=== PATIENT | male | born 1985 | race Caucasian/White ===

== ENCOUNTER 2022-12-04 12:52 | Inpatient (IN) | payer OTHER ==
[2022-12-04 14:08] VITALS: BMI 35.2
[2022-12-04] MEDS ORDERED: DICYCLOMINE HCL 10 MG CAPSULE PO PRN (18:19)
[2022-12-04] MEDS ORDERED: hydrOXYzine PAMOATE 25 MG CAPSULE (FP) PO PRN (18:19)
[2022-12-04] MEDS ORDERED: ACETAMINOPHEN 325 MG TABLET (FP) PO PRN ×2 (18:19)
[2022-12-04] MEDS ORDERED: LOPERAMIDE HCL 2 MG CAPSULE PO PRN (18:19)
[2022-12-04] MEDS ORDERED: BISMUTH SUBSALICYLATE 524 MG/30 ML PO PRN (18:19)
[2022-12-04] MEDS ORDERED: MAG HYDROX/AL HYDROX/SIMETH 30 ML UNIT-DOSE CUP PO PRN (18:19)
[2022-12-04] MEDS ORDERED: IBUPROFEN 600 MG TABLET (FP) PO PRN (18:19)
[2022-12-04] MEDS ORDERED: NALOXONE HCL (KLOXXADO) 8 MG SPRAY NS PRN (18:19)
[2022-12-04] MEDS ORDERED: MAGNESIUM HYDROX 2400MG/30ML ORAL SUSPENSION 30 ML CUP PO PRN (18:19)
[2022-12-04] MEDS ORDERED: METHOCARBAMOL 500 MG TABLET PO PRN (18:19)
[2022-12-04] MEDS ORDERED: IBUPROFEN 400 MG TABLET (FP) PO PRN (18:19)
[2022-12-04] MEDS ORDERED: ONDANSETRON *ODT* 4 MG TABLET SL PRN (18:19)
[2022-12-04] MEDS ORDERED: NICOTINE 10 MG CARTRIDGE (INHALER) IH PRN (18:19)
[2022-12-04] MEDS ORDERED: POLYETHYLENE GLYCOL (HEALTHYLAX) 3350 17 GM PACKET PO PRN (18:19)
[2022-12-04] MEDS ORDERED: BENZOCAINE/MENTHOL (CHLORASEPTIC ) LOZENGE MM PRN (18:19)
[2022-12-04] MEDS ORDERED: diazePAM 5 MG TABLET PO PRN (18:19)
[2022-12-04] MEDS ORDERED: NICOTINE POLACRILEX 2 MG GUM BUC PRN (18:19)
[2022-12-04] MEDS ORDERED: ALBUTEROL SO4 HFA INHALER IH PRN (18:21)
[2022-12-04 22:00] VITALS: RESP 18
[2022-12-04] MEDS ORDERED: MELATONIN 5 MG TABLETS PO SCH (22:00)
[2022-12-04] MEDS ORDERED: THIAMINE HCL 100 MG TABLET (FP) PO SCH (22:00)
[2022-12-04] MEDS: GABAPENTIN 300 MG CAPSULE PO SCH (22:15)
[2022-12-04] MEDS: diazePAM 5 MG TABLET PO SCH (22:16)
[2022-12-05] MEDS: diazePAM 5 MG TABLET PO SCH ×2 (05:30→10:08)
[2022-12-05] MEDS ORDERED: methaDONE 80 MG, methaDONE 20 MG PO SCH ×2 (06:00→11:30)
[2022-12-05] MEDS ORDERED: PRENATAL VITAMINS W/ FOLIC ACID TABLET (FP) PO SCH (10:00)
[2022-12-05 10:01] VITALS: BP 138/74; PULSE 90; TEMP 97.3
[2022-12-05] MEDS: GABAPENTIN 300 MG CAPSULE PO SCH (10:08)
[2022-12-05] MEDS ORDERED: methaDONE HCL 10 MG TABLET PO SCH (11:00)
[2022-12-06] MEDS ORDERED: diazePAM 5 MG TABLET PO SCH (06:00)
[2022-12-07] MEDS ORDERED: diazePAM 5 MG TABLET PO SCH (06:00)
[2022-12-08] MEDS ORDERED: diazePAM 5 MG TABLET PO ONE (06:00)
== END 2022-12-05 12:10 | disposition left against medical advice (07) | DRG 770 ==
LOC: YASAS 12:52 → Y3N 18:36
PROVIDERS: ADMIT Allergy & Immunology; ATTEND Surgery
PROC: HZ2ZZZZ Detoxification Services for Substance Abuse Treatment (ICD-10-PCS; principal; 2022-12-04)
DX: F13.230 Sedative, hypnotic or anxiolytic dependence with withdrawal, uncomplicated (principal); F11.20 Opioid dependence, uncomplicated; F14.20 Cocaine dependence, uncomplicated; F17.210 Nicotine dependence, cigarettes, uncomplicated; F31.9 Bipolar disorder, unspecified; F41.9 Anxiety disorder, unspecified; I10 Essential (primary) hypertension; J45.20 Mild intermittent asthma, uncomplicated; Z86.19 Personal history of other infectious and parasitic diseases; Z88.1 Allergy status to other antibiotic agents; Z91.013 Allergy to seafood
CPT/HCPCS: 93005; 93010; C9803-CS; U0003; U0005